=== PATIENT | female | born 1980 | race Caucasian/White ===

== ENCOUNTER 2016-12-28 22:18 | Emergency (ER) | payer OTHER ==
[~2016-12-28 22:18] MED LIST: BENADRYL25 MG/TA1 NG; CETIRIZINE HCL10 M1 PO; CLARITIN10 MG PO; COLACE100 MG PO; EXPECTA LIPIL; FLONASE16 G1; HYDROCODON-ACE1 EA16 PO; IBUPROFEN200 M2 PO; IBUPROFEN800 M1 PO; LOSARTAN-HCTZ1 EAC4 PO; MOTRIN800 MG PO; NORCO 5-325 TA1 EACH PO; PERCOCET 5-3251 EACH PO; PERCOCET 5/3251 TAB PO; PRENATAL1 TAB; PREPARATION H; PRILOSEC20 MG; SENOKOT-S TABL1 EACH PO; TRANDATE100 MG/TAB JT; TUMS ULTRA1000 M1 PO; TUMS300 MG PO; ZANTAC 7575 MG PO; ZANTAC300 M1 PO; [UNRECOGNIZED DRUG - OTHER]
[2016-12-28] MEDS ORDERED: FLONASE ALLERG9.9 ML (22:47)
[2016-12-28] MEDS ORDERED: ALLEGRA ALLERG180 M1 PO (22:47)
[2016-12-28 23:32] LABS: BASO % 0.4 % (0-2); EOS % 2.7 % (0-7); HCT-HEMATOCRIT 39.9 % (34.0-49.0); IMMATURE GRANULOCYTES ABSOLUTE 0.01 tho/cmm (0-0.03); IMMATURE GRANULOCYTES PERCENT 0.1 % (0-0.3); MCH (MEAN CORPUSCULAR HGB) 30.9 pg (28.0-32.0); MCHC MEAN CORPUSCULAR HGB CONC 35.1 % (32.0-36.0); MCV (MEAN CELL VOLUME) 88.1 fl (82.0-96.0); MEAN PLATELET VOLUME 10.1 cmc (9.4-12.4); MONO % 8.1 % (0-12); NEUTROPHIL ABSOLUTE COUNT 3.1 tho/cmm (1.6-8.0); NEUTROPHIL-AUTOMATED 3.1 tho/cmm (1.6-8.0); NEUTROPHILS % 31.7 % (40-80); PLATELET COUNT 302 tho/cmm (150-450); RED BLOOD COUNT 4.53 mil/cmm (4.00-5.20); RED CELL DISTRIBUTION WIDTH 12.1 % (12.4-16.4); WHITE BLOOD COUNT 9.7 tho/cmm (4.0-10.0)
[2016-12-28 23:38] LABS: EOSINOPHIL ABSOLUTE COUNT 0.3 tho/cmm (0.0-0.7); LYMPH ABSOLUTE COUNT 5.5 tho/cmm (0.8-4.5); MONOCYTE ABSOLUTE COUNT 0.8 tho/cmm (0.0-1.2)
[2016-12-29 00:26] LABS: BLOOD UREA NITROGEN 14 mg/dl (6-24); CALCIUM 8.9 mg/dl (8.5-10.5); CARBON DIOXIDE-VENOUS 24 mmol/L (22-32); CHLORIDE 105 mmol/l (96-110); CREATININE 0.87 mg/dl (0.50-1.10); GLUCOSE 112 mg/dL (70-110); SODIUM 141 mmol/L (135-145); eGFR VALUE FOR BLACK >90 mL/Min
[2016-12-29 00:28] LABS: ANION GAP 15 mmol/L (0-20); POTASSIUM 3.4 mmol/L (3.7-5.1)
[2016-12-29 00:29] LABS: TSH-THYROID STIMULATING HORM. 2.52 uIU/ml (0.40-3.80)
== END 2016-12-29 01:15 ==
LOC: EDMED 22:18
PROVIDERS: Emergency Medicine
DX: R00.0 Tachycardia, unspecified (principal); E87.6 Hypokalemia; I10 Essential (primary) hypertension; Z90.710 Acquired absence of both cervix and uterus; Z79.899 Other long term (current) drug therapy
CPT/HCPCS: J2060; J7030